=== PATIENT | female | born 1990 | race Hispanic/Latino ===

== ENCOUNTER 2019-05-01 21:29 | Emergency (ER) | payer OTHER ==
[2019-05-01 23:02] LABS: Hematocrit 39.3 % (30.3-42.9); Hemoglobin 13.4 gm/dl (10.1-14.3); Mean Corpuscular HGB Conc 34 % (30-34); Mean Corpuscular Hemoglobin 32 pg (28-32); Mean Corpuscular Volume 93 fl (79-97); Platelet Count 256 K/mm3 (140-440); Red Blood Count 4.24 M/mm3 (3.65-5.03); Red Cell Distribution Width 13.1 % (13.2-15.2)
[2019-05-01 23:15] LABS: BUN/Creatinine Ratio 18; Blood Urea Nitrogen 9 mg/dL (7-17); Calcium 9.7 mg/dL (8.4-10.2); Hemolysis Index 5
--- NOTE | 2019-05-02 00:34 | Emergency Department Report ---
ED General Adult HPI - General Chief complaint: Vaginal Bleeding Stated complaint: 12WEEKS PREG/BLEEDING Time Seen by Provider: 05/02/19 00:33 Source: patient Mode of arrival: Ambulatory Limitations: No Limitations - History of Present Illness Initial comments: 28-year-old female who is 12 weeks presents complaining of vaginal bleeding. Patient states the bleeding began this morning has become heavier. Patient complains of bleeding s/p intercourse this morning. Patient denies any syncope. Patient denies any chest pain or shortness of breath. Patient states she has no prior history of ectopic pregnancies or miscarriages. Patient states with the bleeding she called the on-call doctor and this was a here. Patient states she is not bleeding currently and has no cramping. - Related Data Previous Rx's Medication Instructions Recorded Last Taken Type Nitrofurantoin Mccracken/M-Cryst 100 mg PO Q12HR 7 Days #14 capsule 05/02/19 Unknown Rx [Macrobid CAP] Allergies Allergy/AdvReac Type Severity Reaction Status Date / Time No Known Allergies Allergy Unverified 05/01/19 21:50 ED Review of Systems ROS: Stated complaint: 12WEEKS PREG/BLEEDING Other details as noted in HPI Constitutional: denies: chills, fever Eyes: denies: eye pain, eye discharge, vision change ENT: denies: ear pain, throat pain Respiratory: denies: cough, shortness of breath, wheezing Cardiovascular: denies: chest pain, palpitations Endocrine: no symptoms reported Gastrointestinal: denies: abdominal pain, nausea, diarrhea Genitourinary: other (vaginal bleeding) Musculoskeletal: denies: back pain, joint swelling, arthralgia Skin: denies: rash, lesions Neurological: denies: headache, weakness, paresthesias Psychiatric: denies: anxiety, depression Hematological/Lymphatic: denies: easy bleeding, easy bruising ED Past Medical Hx - Past Medical History Previous Medical History?: No - Surgical History Past Surgical History?: No Additional Surgical History: perineal tear during childbirth. - Social History Smoking Status: Never Smoker Substance Use Type: None - Medications Home Medications: Home Medications Medication Instructions Recorded Confirmed Last Taken Type Nitrofurantoin Mccracken/M-Cryst 100 mg PO Q12HR 7 Days #14 capsule 05/02/19 Unknown Rx [Macrobid CAP] ED Physical Exam - General Limitations: No Limitations General appearance: alert, in no apparent distress - Head Head exam: Present: atraumatic, normocephalic - Eye Eye exam: Present: normal appearance - ENT ENT exam: Present: mucous membranes moist - Neck Neck exam: Present: normal inspection - Respiratory Respiratory exam: Present: normal lung sounds bilaterally. Absent: respiratory distress - Cardiovascular Cardiovascular Exam: Present: regular rate, normal rhythm. Absent: systolic murmur, diastolic murmur, rubs, gallop - GI/Abdominal GI/Abdominal exam: Present: soft, normal bowel sounds - Extremities Exam Extremities exam: Present: normal inspection - Back Exam Back exam: Present: normal inspection - Neurological Exam Neurological exam: Present: alert, oriented X3 - Psychiatric Psychiatric exam: Present: normal affect, normal mood - Skin Skin exam: Present: warm, dry, intact, normal color. Absent: rash ED Course Vital Signs 05/01/19 21:50 Temperature 98 F Pulse Rate 96 H Respiratory 16 Rate Blood Pressure 183/90 O2 Sat by Pulse 98 Oximetry ED Medical Decision Making - Lab Data Result diagrams: 05/01/19 22:32 05/01/19 22:32 - Medical Decision Making Patient currently comfortable. US shows no acute findings and shows stable 12 week . patietn to be discharged to follow up with OB. Patient to be treated for a uti with macrobid therapy as an outpatient. - Differential Diagnosis Ectopic ; Miscarriage; UTI Critical care attestation.: If time is entered above; I have spent that time in minutes in the direct care of this critically ill patient, excluding procedure time. ED Disposition Clinical Impression: Abdominal pain, , UTI (urinary tract infection) Disposition: TO HOME OR SELFCARE Is pt being admited?: No Condition: Stable Instructions: Urinary Tract Infection in Women (ED), Threatened Miscarriage ( ED) Prescriptions: Nitrofurantoin Mccracken/M-Cryst [Macrobid CAP] 100 mg PO Q12HR 7 Days #14 capsule Referrals: PRIMARY CARE,MD [Primary Care Provider] - 3-5 Days NATHAN AMOS CNM [Advanced Practice Nurse] - 3-5 Days Time of Disposition: 02:40 Print Language: BERMUDIAN
[2019-05-02 01:49] LABS: HCG Qualitative,Urine Positive (Negative)
[2019-05-02 01:51] LABS: Bacteria,Urine 2+ /HPF (Negative); Bilirubin,Urine NEG (Negative); Blood,Urine LG (Negative); Color,Urine Yellow (Yellow); Mucus,Urine 1+ /HPF; Protein,Urine <15 mg/dL mg/dL (Negative); Urobilinogen,Urine < 2.0 mg/dL (<2.0)
--- NOTE | 2019-05-02 01:51 | Ultrasound Report ---
ULTRASOUND OBSTETRIC INDICATION: Vaginal bleeding. with a clinical gestational age of 7 weeks, 5 days. TECHNIQUE: Transabdominal. COMPARISON: None available. FINDINGS: GESTATIONAL SAC: Well-defined oval shape and intrauterine in location. YOLK SAC: Not clearly seen. EMBRYO/FETUS: No significant abnormality. - [place]-Rump Length = 0.6 cm = 12 weeks, 3 day(s). - Heart Rate = 161 beats per minute. ADNEXA: Nonvisualization of the ovaries due to bowel gas. No distinct abnormality. FREE FLUID: None. ADDITIONAL FINDINGS: No additional significant findings. IMPRESSION: Single, living intrauterine with estimated sonographic age of 12 weeks, 3 day(s). Signer Name: Matthew Alas MD Signed: 05/02/2019 1:47 AM Workstation Name: [id number]
[2019-05-02 03:11] VITALS: BP 119/80
== END 2019-05-02 03:10 | disposition home or self-care (01) ==
LOC: ED 21:29
DX: O23.41 Unspecified infection of urinary tract in pregnancy, first trimester (principal); Z3A.12 12 weeks gestation of pregnancy
CPT/HCPCS: 36415; 76801; 80048; 81001; 81025; 84703; 85027; 87086; 99284

== ENCOUNTER 2019-10-18 16:26 | Inpatient (IN) | payer OTHER ==
[2019-10-18] MEDS ORDERED: MINERAL OIL 30 ML ORAL LIQD PO PRN (17:43)
[2019-10-18] MEDS ORDERED: TERBUTALINE 1 MG/1 ML INJ SUB-Q PRN (17:43)
[2019-10-18] MEDS ORDERED: LIDOCAINE (2%) 20 MG/1 ML VIAL 20 ML MDV INFILTRATI ONE (17:43)
[2019-10-18] MEDS ORDERED: TERBUTALINE 1 MG/1 ML INJ IVP PRN (17:43)
[2019-10-18] MEDS ORDERED: ONDANSETRON 4 MG/2 ML INJ IV PRN (17:43)
[2019-10-18] MEDS ORDERED: fentaNYL 100 MCG/2 ML INJ IV PRN (17:43)
[2019-10-18] MEDS ORDERED: ePHEDrine SULFATE 50 MG/1 ML INJ IV PRN (17:43)
--- NOTE | 2019-10-18 17:51 | History and Physical Report ---
History of Present Illness Date of examination: 10/18/19 (ruptured membranes. augmentation of labor) History of present illness: EDC Confirmation: 11/08/2019 Gestational Age: 5 2/7 weeks Past History : 2 Term Births: 1 Premature Births: 0 Living Children: 1 Para: 1 Mult. Births: 0 Prev : 0 Prev. attempt? 0 Aborta: 0 Elect. Ab: 0 Spont. Ab: 0 Ectopics: 0 # 1 Delivery date: 12/23/2012 Weeks Gestation: 37.5 Delivery type: Vaginal Anesthesia type: epidural Delivery location: [facility] Infant Sex: female weight: 7.25 Comments: none Social History: Patient is no e/t/d Smoking History: Patient has never smoked. 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 Infection History Hx of STD: none HIV Risk Eval: low risk Hepatitis B Risk Eval: low risk Personal hx. of genital herpes: no Partner hx. of genital herpes: no Rash, Viral, or Febrile illness since last LMP? no Varicella/Chicken Pox Status: Previous Disease TB Risk: no Genetic History Congenital Heart Defect: Mom: no Dad: no Berto Disease: Mom: no Dad: no Thalassemia Mom: no Dad: no Neural Tube Defect Mom: no Dad: no Down's Syndrome Mom: no Dad: no Dean-Sachs Mom: no Dad: no Sickle Cell Disease/Trait Mom: no Dad: no Hemophilia Mom: no Dad: no Muscular Dystrophy Mom: no Dad: no Cystic Fibrosis Mom: no Dad: no Jose Chorea Mom: no Dad: no Mental Retardation Mom: no Dad: no Fragile X Mom: no Dad: no Other Genetic/Chromosomal Disorder Mom: no Dad: no Child w/other defect Mom: no Dad: no Enviromental Exposures Xray Exposure: no Medication, drug, or alcohol use since LMP: no Chemical/Other Exposure: no Exposure to Cat Liter: no Hx of Parvovirus (Fifth Disease): no Occupational Exposure to Children: none Active Medications (reviewed today): RX 1 TABS ( VIT-FE FUMARATE-FA TABS) one po q day Current Allergies (reviewed today): No known allergies Past History - Obstetrical History Expected Date of Delivery: 11/08/19 Actual Gestation: 37 Week(s) 1 Day(s) : 2 Para: 1 Hx # Term Pregnancies: 1 Number of Pregnancies: 0 Spontaneous Abortions: 0 Induced : 0 Number of Living Children: 1 Medications and Allergies Allergies Allergy/AdvReac Type Severity Reaction Status Date / Time No Known Allergies Allergy Verified 10/18/19 17:58 Home Medications Medication Instructions Recorded Confirmed Last Taken Type Vitamin 1 tab PO DAILY 10/18/19 10/18/19 10/17/19 History - Vital Signs Vital signs: Vital Signs Pulse Pulse Ox 83 99 10/18/19 16:55 10/18/19 16:55 Temp Pulse Resp BP Pulse Ox 98.4 F 89 18 129/87 96 10/18/19 16:59 10/18/19 17:40 10/18/19 16:59 10/18/19 16:59 10/18/19 17:40 - Physical Exam Breasts: Positive: deferred Cardiovascular: Regular rate, Normal S1, Normal S2 Lungs: Positive: Normal air movement Abdomen: Positive: normal appearance, soft, normal bowel sounds. Negative: distention, tenderness Genitourinary (Female): Positive: normal external genitalia, normal perenium Vulva: both: normal Vagina: Positive: normal moisture. Negative: discharge Cervix: Negative: lesion, discharge Uterus: Positive: normal size, normal contour Adnexa: both: normal Anus/Rectum: Positive: normal perianal skin, heme negative. Negative: rectal mass, hemorrhoids Extremities: Positive: normal Deep Tendon Reflex Grade: Normal +2 - Obstetrical FHR: category 1 Uterine Contraction Monitor Mode: External Cervical Dilatation: 1.5 (clear fluid) Cervical Effacement Percentage: 30 (exam by Charge Nurse) station: -3 Uterine Contraction Pattern: Irregular Uterine Tone Measurement Phase: Resting Uterine Contraction Intensity: Mild Results Result Diagrams: 10/18/19 19:13 All other labs normal. GBS Negative HBsAg Screen Negative RPR Non Reactive Rubella Antibodies, IgG 3.08 index Immune >0.99 ABO Grouping O *4 Rh Factor Positive *5 Please note: Prior records for this patient's ABO / Rh type are not available for additional verification. Antibody Screen Negative Negative *6 WBC 8.6 x10E3/uL 3.4-10.8 *7 RBC 4.45 x10E6/uL 3.77-5.28 *8 Hemoglobin 13.8 g/dL 11.1-15.9 *9 Hematocrit 41.8 % 34.0-46.6 *10 MCV 94 fL 79-97 *11 MCH 31.0 pg 26.6-33.0 *12 MCHC 33.0 g/dL 31.5-35.7 *13 RDW 13.2 % 12.3-15.4 *14 Platelets 318 x10E3/uL 150-450 *15 Neutrophils 78 % Not Estab. *16 Lymphs 15 % Not Estab. *17 Monocytes 6 % Not Estab. *18 Eos 1 % Not Estab. *19 Basos 0 % Not Estab. *20 ! Immature Cells <No Reported Value> *21 Neutrophils (Absolute) 6.6 x10E3/uL 1.4-7.0 *22 Lymphs (Absolute) 1.3 x10E3/uL 0.7-3.1 *23 Monocytes(Absolute) 0.5 x10E3/uL 0.1-0.9 *24 Eos (Absolute) 0.1 x10E3/uL 0.0-0.4 *25 Baso (Absolute) 0.0 x10E3/uL 0.0-0.2 *26 ! Immature Granulocytes 0 % Not Estab. *27 ! Immature Grans (Abs) 0.0 x10E3/uL 0.0-0.1 *28 ! NRBC <No Reported Value> *29 Hematology Comments: <No Reported Value> *30 Tests: (2) Panel 403687 ([id number]) HIV Screen 4th Generation wRfx Non Reactive Non Reactive *31 Tests: (3) HCV Ab w/Rflx to Verification (538411) ! HCV Ab <0.1 s/co ratio 0.0-0.9 *32 Tests: (4) Comment: (809383) ! Comment: SPRCS *33 Non reactive HCV antibody screen is consistent with no HCV infection, unless recent infection is suspected or other evidence exists to indicate HCV infection. Tests: (5) Urine Culture, Routine (368790) Urine Culture, Routine Final report *34 Tests: (6) Result ([id number]) ! Result 1 MUG *35 Mixed urogenital shani 10,000-25,000 colony forming units per mL Assessment and Plan 29yo @ 37 weeks with SROM Not in active labor. GBS negative Orders in EMR
[2019-10-18] MEDS ORDERED: OXYTOCIN 20 UNIT/1000ML DRIP 20 UNITS/1,000 ML BAG IV SCH (18:00)
[2019-10-18 19:43] LABS: Hematocrit 43.4 % (30.3-42.9); Hemoglobin 14.7 gm/dl (10.1-14.3); Mean Corpuscular HGB Conc 34 % (30-34); Mean Corpuscular Volume 93 fl (79-97); Platelet Count 315 K/mm3 (140-440); Red Blood Count 4.65 M/mm3 (3.65-5.03); Red Cell Distribution Width 13.2 % (13.2-15.2)
[2019-10-18] MEDS ORDERED: OXYTOCIN DRIP 30 UNITS/500 ML BAG IV SCH (20:00)
[2019-10-18] MEDS: LACTATED RINGERS 1,000 ML IV SCH (21:23)
[2019-10-19] MEDS ORDERED: SODIUM CHLORIDE P/F VIAL 10 ML 10 ML ONE (01:36)
[2019-10-19] MEDS ORDERED: DEXMEDETOMIDINE 200 MCG/2 ML VIAL IV ONE (01:36)
[2019-10-19] MEDS ORDERED: NALOXONE 2 MG/2 ML INJ IV PRN (01:57)
[2019-10-19] MEDS ORDERED: ePHEDrine SULFATE 50 MG/1 ML INJ IV PRN (01:57)
--- NOTE | 2019-10-19 01:59 | Anesthesia Consultation ---
Anesthesia Consult and Med Hx Date of service: 10/19/19 - Airway Anesthetic Teeth Evaluation: Good ROM Head & Neck: Adequate Mental/Hyoid Distance: Adequate Mallampati Class: Class II Intubation Access Assessment: Probably Good - Pulmonary Exam CTA: Yes - Cardiac Exam Cardiac Exam: RRR - Pre-Operative Health Status ASA Pre-Surgery Classification: ASA2 Proposed Anesthetic Plan: Epidural - Pulmonary Hx Asthma: No COPD: No Hx Pneumonia: No - Cardiovascular System Hx Hypertension: No - Central Nervous System Hx Seizures: No Hx Psychiatric Problems: No - Endocrine Hx Renal Disease: No Hx End Stage Renal Disease: No Hx Hypothyroidism: No Hx Hyperthyroidism: No - Hematic Hx Anemia: No Hx Sickle Cell Disease: No - Other Systems Hx Alcohol Use: No Hx Obesity: Yes
--- NOTE | 2019-10-19 02:50 | Progress Note ---
Assessment and Plan Pt comfortable with epidural SVE 3-4,70,-2 Internals placed Continue pit per protocol Re-eval as needed. Subjective - Subjective Date of service: 10/19/19 (comfortable with epidural) Principal diagnosis: IUP@37weeks with SROM Interval history: EDC Confirmation: 11/08/2019 Gestational Age: 5 2/7 weeks Past History : 2 Term Births: 1 Premature Births: 0 Living Children: 1 Para: 1 Mult. Births: 0 Prev : 0 Prev. attempt? 0 Aborta: 0 Elect. Ab: 0 Spont. Ab: 0 Ectopics: 0 # 1 Delivery date: 12/23/2012 Weeks Gestation: 37.5 Delivery type: Vaginal Anesthesia type: epidural Delivery location: [facility] Sex: female weight: 7.25 Comments: none Social History: Patient is no e/t/d Smoking History: Patient has never smoked. 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 Infection History Hx of STD: none HIV Risk Eval: low risk Hepatitis B Risk Eval: low risk Personal hx. of genital herpes: no Partner hx. of genital herpes: no Rash, Viral, or Febrile illness since last LMP? no Varicella/Chicken Pox Status: Previous Disease TB Risk: no Genetic History Congenital Heart Defect: Mom: no Dad: no Berto Disease: Mom: no Dad: no Thalassemia Mom: no Dad: no Neural Tube Defect Mom: no Dad: no Down's Syndrome Mom: no Dad: no Dean-Sachs Mom: no Dad: no Sickle Cell Disease/Trait Mom: no Dad: no Hemophilia Mom: no Dad: no Muscular Dystrophy Mom: no Dad: no Cystic Fibrosis Mom: no Dad: no Jose Chorea Mom: no Dad: no Mental Retardation Mom: no Dad: no Fragile X Mom: no Dad: no Other Genetic/Chromosomal Disorder Mom: no Dad: no Child w/other defect Mom: no Dad: no Enviromental Exposures Xray Exposure: no Medication, drug, or alcohol use since LMP: no Chemical/Other Exposure: no Exposure to Cat Liter: no Hx of Parvovirus (Fifth Disease): no Occupational Exposure to Children: none Active Medications (reviewed today): RX 1 TABS ( VIT-FE FUMARATE-FA TABS) one po q day Current Allergies (reviewed today): No known allergies Patient reports: movement normal Objective - Vital Signs Vital Signs: Vital Signs - 12hr 10/18/19 10/18/19 10/18/19 16:55 16:59 17:00 Temperature 98.4 F Pulse Rate 83 85 91 H Respiratory 18 Rate Blood Pressure 129/87 Blood Pressure 129/87 [Left] Blood Pressure [Right] O2 Sat by Pulse 99 96 98 Oximetry 10/18/19 10/18/19 10/18/19 17:05 17:10 17:15 Temperature Pulse Rate 82 92 H 83 Respiratory Rate Blood Pressure Blood Pressure [Left] Blood Pressure [Right] O2 Sat by Pulse 98 97 97 Oximetry 10/18/19 10/18/19 10/18/19 17:20 17:25 17:28 Temperature Pulse Rate 85 106 H 88 Respiratory Rate Blood Pressure Blood Pressure [Left] Blood Pressure [Right] O2 Sat by Pulse 97 95 94 Oximetry 10/18/19 10/18/19 10/18/19 17:30 17:35 17:40 Temperature Pulse Rate 82 92 H 89 Respiratory Rate Blood Pressure Blood Pressure [Left] Blood Pressure [Right] O2 Sat by Pulse 94 96 96 Oximetry 10/18/19 10/19/19 10/19/19 19:44 01:38 01:41 Temperature 98.3 F Pulse Rate 96 H 94 H 92 H Respiratory 18 Rate Blood Pressure 133/82 137/88 Blood Pressure [Left] Blood Pressure 133/82 [Right] O2 Sat by Pulse 99 Oximetry 10/19/19 10/19/19 10/19/19 01:43 01:45 01:47 Temperature Pulse Rate 90 87 107 H Respiratory Rate Blood Pressure 139/90 139/79 137/73 Blood Pressure [Left] Blood Pressure [Right] O2 Sat by Pulse 100 89 Oximetry 10/19/19 10/19/19 10/19/19 01:48 01:49 01:51 Temperature Pulse Rate 86 99 H 94 H Respiratory Rate Blood Pressure 136/74 135/76 Blood Pressure [Left] Blood Pressure [Right] O2 Sat by Pulse 100 Oximetry 10/19/19 10/19/19 10/19/19 01:53 01:55 01:57 Temperature Pulse Rate 97 H 77 96 H Respiratory Rate Blood Pressure 144/79 134/75 139/69 Blood Pressure [Left] Blood Pressure [Right] O2 Sat by Pulse 100 Oximetry 10/19/19 10/19/19 10/19/19 01:58 01:59 02:01 Temperature Pulse Rate 114 H 90 99 H Respiratory Rate Blood Pressure 121/61 117/61 Blood Pressure [Left] Blood Pressure [Right] O2 Sat by Pulse 98 Oximetry 10/19/19 10/19/19 10/19/19 02:03 02:05 02:07 Temperature Pulse Rate 90 90 85 Respiratory Rate Blood Pressure 111/59 106/55 107/55 Blood Pressure [Left] Blood Pressure [Right] O2 Sat by Pulse 98 Oximetry 10/19/19 10/19/19 10/19/19 02:08 02:09 02:11 Temperature Pulse Rate 86 121 H 91 H Respiratory Rate Blood Pressure 104/62 90/51 Blood Pressure [Left] Blood Pressure [Right] O2 Sat by Pulse 97 Oximetry 10/19/19 10/19/19 10/19/19 02:13 02:15 02:17 Temperature Pulse Rate 98 H 86 96 H Respiratory Rate Blood Pressure 89/47 91/49 93/52 Blood Pressure [Left] Blood Pressure [Right] O2 Sat by Pulse 96 Oximetry 10/19/19 10/19/19 10/19/19 02:18 02:19 02:21 Temperature Pulse Rate 88 83 101 H Respiratory Rate Blood Pressure 98/55 97/51 Blood Pressure [Left] Blood Pressure [Right] O2 Sat by Pulse 98 Oximetry 10/19/19 10/19/19 10/19/19 02:23 02:25 02:27 Temperature Pulse Rate 91 H 97 H 113 H Respiratory Rate Blood Pressure 114/61 107/57 117/67 Blood Pressure [Left] Blood Pressure [Right] O2 Sat by Pulse 97 Oximetry 10/19/19 10/19/19 10/19/19 02:28 02:29 02:31 Temperature Pulse Rate 87 93 H 112 H Respiratory Rate Blood Pressure 114/63 114/62 Blood Pressure [Left] Blood Pressure [Right] O2 Sat by Pulse 98 Oximetry 10/19/19 10/19/19 10/19/19 02:33 02:35 02:37 Temperature Pulse Rate 82 109 H 89 Respiratory Rate Blood Pressure 102/64 97/56 102/53 Blood Pressure [Left] Blood Pressure [Right] O2 Sat by Pulse 99 Oximetry 10/19/19 10/19/19 02:39 02:41 Temperature Pulse Rate 82 85 Respiratory Rate Blood Pressure 93/52 94/52 Blood Pressure [Left] Blood Pressure [Right] O2 Sat by Pulse Oximetry - Exam Breasts: normal Cardiovascular: Regular rate Lungs: Normal air movement Abdomen: Present: normal appearance, soft. Absent: distention, tenderness Uterus: Present: normal FHR: auscultation normal, category 1 Uterine Contraction Monitor Mode: Internal Cervical Dilatation: 3.5 (ISE/IUPC placed) Cervical Effacement Percentage: 70 station: -2 Uterine Contraction Pattern: Regular Uterine Tone Measurement Phase: Resting Uterine Contraction Intensity: Moderate Extremities: normal Deep Tendon Reflex Grade: Normal +2 - Labs Labs: Abnormal Labs 10/18/19 19:13 WBC 14.2 H Hgb 14.7 H Hct 43.4 H Laboratory Results - last 24 hr 10/18/19 10/18/19 10/19/19 19:13 19:13 00:54 WBC 14.2 H RBC 4.65 Hgb 14.7 H Hct 43.4 H MCV 93 MCH 32 MCHC 34 RDW 13.2 Plt Count 315 Syphilis IgG Antibody Non-reactive Blood Type O POSITIVE Antibody Screen Negative
[2019-10-19] MEDS ORDERED: HETASTARCH 6% 500 ML IV ONE ×2 (03:38→03:41)
[2019-10-19] MEDS: fentaNYL-BUPIV 2 MCG/ML-0.125% 200 MCG/100 ML BAG EPIDURAL SCH ×2 (04:08→11:27)
--- NOTE | 2019-10-19 04:33 | Progress Note ---
Assessment and Plan Variables continue with ctx. Variability good. Pit remains @ 4mu. SVE 5,70,-2 Will continue with close observation. Subjective - Subjective Date of service: 10/19/19 (Cat 2 strip; BP 90/50 hespan given by anesthesia) Principal diagnosis: IUP@37weeks with SROM Interval history: EDC Confirmation: 11/08/2019 Gestational Age: 5 2/7 weeks Past History : 2 Term Births: 1 Premature Births: 0 Living Children: 1 Para: 1 Mult. Births: 0 Prev : 0 Prev. attempt? 0 Aborta: 0 Elect. Ab: 0 Spont. Ab: 0 Ectopics: 0 # 1 Delivery date: 12/23/2012 Weeks Gestation: 37.5 Delivery type: Vaginal Anesthesia type: epidural Delivery location: [facility] Sex: female weight: 7.25 Comments: none Social History: Patient is no e/t/d Smoking History: Patient has never smoked. 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 Infection History Hx of STD: none HIV Risk Eval: low risk Hepatitis B Risk Eval: low risk Personal hx. of genital herpes: no Partner hx. of genital herpes: no Rash, Viral, or Febrile illness since last LMP? no Varicella/Chicken Pox Status: Previous Disease TB Risk: no Genetic History Congenital Heart Defect: Mom: no Dad: no Berto Disease: Mom: no Dad: no Thalassemia Mom: no Dad: no Neural Tube Defect Mom: no Dad: no Down's Syndrome Mom: no Dad: no Dean-Sachs Mom: no Dad: no Sickle Cell Disease/Trait Mom: no Dad: no Hemophilia Mom: no Dad: no Muscular Dystrophy Mom: no Dad: no Cystic Fibrosis Mom: no Dad: no [place] Chorea Mom: no Dad: no Mental Retardation Mom: no Dad: no Fragile X Mom: no Dad: no Other Genetic/Chromosomal Disorder Mom: no Dad: no Child w/other defect Mom: no Dad: no Enviromental Exposures Xray Exposure: no Medication, drug, or alcohol use since LMP: no Chemical/Other Exposure: no Exposure to Cat Liter: no Hx of Parvovirus (Fifth Disease): no Occupational Exposure to Children: none Active Medications (reviewed today): RX 1 TABS ( VIT-FE FUMARATE-FA TABS) one po q day Current Allergies (reviewed today): No known allergies Patient reports: movement normal Objective - Vital Signs Vital Signs: Vital Signs - 12hr 10/18/19 10/18/19 10/18/19 16:55 16:59 17:00 Temperature 98.4 F Pulse Rate 83 85 91 H Respiratory 18 Rate Blood Pressure 129/87 Blood Pressure 129/87 [Left] Blood Pressure [Right] O2 Sat by Pulse 99 96 98 Oximetry 10/18/19 10/18/19 10/18/19 17:05 17:10 17:15 Temperature Pulse Rate 82 92 H 83 Respiratory Rate Blood Pressure Blood Pressure [Left] Blood Pressure [Right] O2 Sat by Pulse 98 97 97 Oximetry 10/18/19 10/18/19 10/18/19 17:20 17:25 17:28 Temperature Pulse Rate 85 106 H 88 Respiratory Rate Blood Pressure Blood Pressure [Left] Blood Pressure [Right] O2 Sat by Pulse 97 95 94 Oximetry 10/18/19 10/18/19 10/18/19 17:30 17:35 17:40 Temperature Pulse Rate 82 92 H 89 Respiratory Rate Blood Pressure Blood Pressure [Left] Blood Pressure [Right] O2 Sat by Pulse 94 96 96 Oximetry 10/18/19 10/19/19 10/19/19 19:44 01:38 01:41 Temperature 98.3 F Pulse Rate 96 H 94 H 92 H Respiratory 18 Rate Blood Pressure 133/82 137/88 Blood Pressure [Left] Blood Pressure 133/82 [Right] O2 Sat by Pulse 99 Oximetry 10/19/19 10/19/19 10/19/19 01:43 01:45 01:47 Temperature Pulse Rate 90 87 107 H Respiratory Rate Blood Pressure 139/90 139/79 137/73 Blood Pressure [Left] Blood Pressure [Right] O2 Sat by Pulse 100 89 Oximetry 10/19/19 10/19/19 10/19/19 01:48 01:49 01:51 Temperature Pulse Rate 86 99 H 94 H Respiratory Rate Blood Pressure 136/74 135/76 Blood Pressure [Left] Blood Pressure [Right] O2 Sat by Pulse 100 Oximetry 10/19/19 10/19/19 10/19/19 01:53 01:55 01:57 Temperature Pulse Rate 97 H 77 96 H Respiratory Rate Blood Pressure 144/79 134/75 139/69 Blood Pressure [Left] Blood Pressure [Right] O2 Sat by Pulse 100 Oximetry 10/19/19 10/19/19 10/19/19 01:58 01:59 02:01 Temperature Pulse Rate 114 H 90 99 H Respiratory Rate Blood Pressure 121/61 117/61 Blood Pressure [Left] Blood Pressure [Right] O2 Sat by Pulse 98 Oximetry 10/19/19 10/19/19 10/19/19 02:03 02:05 02:07 Temperature Pulse Rate 90 90 85 Respiratory Rate Blood Pressure 111/59 106/55 107/55 Blood Pressure [Left] Blood Pressure [Right] O2 Sat by Pulse 98 Oximetry 10/19/19 10/19/19 10/19/19 02:08 02:09 02:11 Temperature Pulse Rate 86 121 H 91 H Respiratory Rate Blood Pressure 104/62 90/51 Blood Pressure [Left] Blood Pressure [Right] O2 Sat by Pulse 97 Oximetry 10/19/19 10/19/19 10/19/19 02:13 02:15 02:17 Temperature Pulse Rate 98 H 86 96 H Respiratory Rate Blood Pressure 89/47 91/49 93/52 Blood Pressure [Left] Blood Pressure [Right] O2 Sat by Pulse 96 Oximetry 10/19/19 10/19/19 10/19/19 02:18 02:19 02:21 Temperature Pulse Rate 88 83 101 H Respiratory Rate Blood Pressure 98/55 97/51 Blood Pressure [Left] Blood Pressure [Right] O2 Sat by Pulse 98 Oximetry 10/19/19 10/19/19 10/19/19 02:23 02:25 02:27 Temperature Pulse Rate 91 H 97 H 113 H Respiratory Rate Blood Pressure 114/61 107/57 117/67 Blood Pressure [Left] Blood Pressure [Right] O2 Sat by Pulse 97 Oximetry 10/19/19 10/19/19 10/19/19 02:28 02:29 02:31 Temperature Pulse Rate 87 93 H 112 H Respiratory Rate Blood Pressure 114/63 114/62 Blood Pressure [Left] Blood Pressure [Right] O2 Sat by Pulse 98 Oximetry 10/19/19 10/19/19 10/19/19 02:33 02:35 02:37 Temperature Pulse Rate 82 109 H 89 Respiratory Rate Blood Pressure 102/64 97/56 102/53 Blood Pressure [Left] Blood Pressure [Right] O2 Sat by Pulse 99 Oximetry 10/19/19 10/19/19 10/19/19 02:39 02:41 02:43 Temperature Pulse Rate 82 85 104 H Respiratory Rate Blood Pressure 93/52 94/52 93/54 Blood Pressure [Left] Blood Pressure [Right] O2 Sat by Pulse Oximetry 10/19/19 10/19/19 10/19/19 02:45 02:47 02:49 Temperature Pulse Rate 100 H 83 82 Respiratory Rate Blood Pressure 88/50 110/57 109/57 Blood Pressure [Left] Blood Pressure [Right] O2 Sat by Pulse Oximetry 10/19/19 10/19/19 10/19/19 02:51 02:53 02:55 Temperature Pulse Rate 89 93 H 88 Respiratory Rate Blood Pressure 121/57 114/56 106/52 Blood Pressure [Left] Blood Pressure [Right] O2 Sat by Pulse Oximetry 10/19/19 10/19/19 10/19/19 02:57 02:59 03:32 Temperature Pulse Rate 77 76 73 Respiratory Rate Blood Pressure 105/53 107/51 92/44 Blood Pressure [Left] Blood Pressure [Right] O2 Sat by Pulse Oximetry 10/19/19 10/19/19 10/19/19 03:47 03:57 04:07 Temperature Pulse Rate 83 73 73 Respiratory Rate Blood Pressure 107/53 98/54 93/51 Blood Pressure [Left] Blood Pressure [Right] O2 Sat by Pulse Oximetry 10/19/19 04:17 Temperature Pulse Rate 71 Respiratory Rate Blood Pressure 103/51 Blood Pressure [Left] Blood Pressure [Right] O2 Sat by Pulse Oximetry - Exam Breasts: deferred Cardiovascular: Regular rate Lungs: Normal air movement Abdomen: Present: normal appearance, soft. Absent: distention, tenderness Uterus: Present: normal FHR: auscultation normal, category 2 Uterine Contraction Monitor Mode: Internal Cervical Dilatation: 5 Cervical Effacement Percentage: 70 station: -2 Uterine Contraction Pattern: Regular Uterine Tone Measurement Phase: Resting Uterine Contraction Intensity: Moderate Extremities: normal Deep Tendon Reflex Grade: Normal +2 - Labs Labs: Abnormal Labs 10/18/19 19:13 WBC 14.2 H Hgb 14.7 H Hct 43.4 H Laboratory Results - last 24 hr 10/18/19 10/18/19 10/19/19 19:13 19:13 00:54 WBC 14.2 H RBC 4.65 Hgb 14.7 H Hct 43.4 H MCV 93 MCH 32 MCHC 34 RDW 13.2 Plt Count 315 Syphilis IgG Antibody Non-reactive Blood Type O POSITIVE Antibody Screen Negative
[2019-10-19] MEDS: LACTATED RINGERS 1,000 ML IV SCH (05:02)
[2019-10-19] MEDS ORDERED: SODIUM CHLORIDE 0.9% 1000 ML 1,000 ML VG SCH (05:45)
--- NOTE | 2019-10-19 07:41 | Event Note ---
Date: 10/19/19 (head compression noted on recording) Pit @ 4mu SVE no chg 5,70,-2 Discussed with pt and family the possibility of operative intervention. Membranes ruptured >12hours and lack of cervical chg. Good return of fluid from amnioinfusion All questions addressed.
--- NOTE | 2019-10-19 08:37 | Progress Note ---
Assessment and Plan Slow progress SVE 6-7,80,-1 pitocin off. Will re-eval 1 hour Subjective - Subjective Date of service: 10/19/19 (decels cont with occas ctx; pit off) Principal diagnosis: IUP@37weeks with SROM Interval history: EDC Confirmation: 11/08/2019 Gestational Age: 5 2/7 weeks Past History : 2 Term Births: 1 Premature Births: 0 Living Children: 1 Para: 1 Mult. Births: 0 Prev : 0 Prev. attempt? 0 Aborta: 0 Elect. Ab: 0 Spont. Ab: 0 Ectopics: 0 # 1 Delivery date: 12/23/2012 Weeks Gestation: 37.5 Delivery type: Vaginal Anesthesia type: epidural Delivery location: [facility] Sex: female weight: 7.25 Comments: none Social History: Patient is no e/t/d Smoking History: Patient has never smoked. 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 Infection History Hx of STD: none HIV Risk Eval: low risk Hepatitis B Risk Eval: low risk Personal hx. of genital herpes: no Partner hx. of genital herpes: no Rash, Viral, or Febrile illness since last LMP? no Varicella/Chicken Pox Status: Previous Disease TB Risk: no Genetic History Congenital Heart Defect: Mom: no Dad: no Berto Disease: Mom: no Dad: no Thalassemia Mom: no Dad: no Neural Tube Defect Mom: no Dad: no Down's Syndrome Mom: no Dad: no Dean-Sachs Mom: no Dad: no Sickle Cell Disease/Trait Mom: no Dad: no Hemophilia Mom: no Dad: no Muscular Dystrophy Mom: no Dad: no Cystic Fibrosis Mom: no Dad: no [place] Chorea Mom: no Dad: no Mental Retardation Mom: no Dad: no Fragile X Mom: no Dad: no Other Genetic/Chromosomal Disorder Mom: no Dad: no Child w/other defect Mom: no Dad: no Enviromental Exposures Xray Exposure: no Medication, drug, or alcohol use since LMP: no Chemical/Other Exposure: no Exposure to Cat Liter: no Hx of Parvovirus (Fifth Disease): no Occupational Exposure to Children: none Active Medications (reviewed today): RX 1 TABS ( VIT-FE FUMARATE-FA TABS) one po q day Current Allergies (reviewed today): No known allergies Patient reports: movement normal Objective - Vital Signs Vital Signs: Vital Signs - 12hr 10/19/19 10/19/19 10/19/19 01:38 01:41 01:43 Temperature Pulse Rate 94 H 92 H 90 Blood Pressure 137/88 139/90 O2 Sat by Pulse 99 100 Oximetry 10/19/19 10/19/19 10/19/19 01:45 01:47 01:48 Temperature Pulse Rate 87 107 H 86 Blood Pressure 139/79 137/73 O2 Sat by Pulse 89 100 Oximetry 10/19/19 10/19/19 10/19/19 01:49 01:51 01:53 Temperature Pulse Rate 99 H 94 H 97 H Blood Pressure 136/74 135/76 144/79 O2 Sat by Pulse 100 Oximetry 10/19/19 10/19/19 10/19/19 01:55 01:57 01:58 Temperature Pulse Rate 77 96 H 114 H Blood Pressure 134/75 139/69 O2 Sat by Pulse 98 Oximetry 10/19/19 10/19/19 10/19/19 01:59 02:01 02:03 Temperature Pulse Rate 90 99 H 90 Blood Pressure 121/61 117/61 111/59 O2 Sat by Pulse 98 Oximetry 10/19/19 10/19/19 10/19/19 02:05 02:07 02:08 Temperature Pulse Rate 90 85 86 Blood Pressure 106/55 107/55 O2 Sat by Pulse 97 Oximetry 10/19/19 10/19/19 10/19/19 02:09 02:11 02:13 Temperature Pulse Rate 121 H 91 H 98 H Blood Pressure 104/62 90/51 89/47 O2 Sat by Pulse 96 Oximetry 10/19/19 10/19/19 10/19/19 02:15 02:17 02:18 Temperature Pulse Rate 86 96 H 88 Blood Pressure 91/49 93/52 O2 Sat by Pulse 98 Oximetry 10/19/19 10/19/19 10/19/19 02:19 02:21 02:23 Temperature Pulse Rate 83 101 H 91 H Blood Pressure 98/55 97/51 114/61 O2 Sat by Pulse 97 Oximetry 10/19/19 10/19/19 10/19/19 02:25 02:27 02:28 Temperature Pulse Rate 97 H 113 H 87 Blood Pressure 107/57 117/67 O2 Sat by Pulse 98 Oximetry 10/19/19 10/19/19 10/19/19 02:29 02:31 02:33 Temperature Pulse Rate 93 H 112 H 82 Blood Pressure 114/63 114/62 102/64 O2 Sat by Pulse 99 Oximetry 10/19/19 10/19/19 10/19/19 02:35 02:37 02:39 Temperature Pulse Rate 109 H 89 82 Blood Pressure 97/56 102/53 93/52 O2 Sat by Pulse Oximetry 10/19/19 10/19/19 10/19/19 02:41 02:43 02:45 Temperature Pulse Rate 85 104 H 100 H Blood Pressure 94/52 93/54 88/50 O2 Sat by Pulse Oximetry 10/19/19 10/19/19 10/19/19 02:47 02:49 02:51 Temperature Pulse Rate 83 82 89 Blood Pressure 110/57 109/57 121/57 O2 Sat by Pulse Oximetry 10/19/19 10/19/19 10/19/19 02:53 02:55 02:57 Temperature Pulse Rate 93 H 88 77 Blood Pressure 114/56 106/52 105/53 O2 Sat by Pulse Oximetry 10/19/19 10/19/19 10/19/19 02:59 03:32 03:47 Temperature Pulse Rate 76 73 83 Blood Pressure 107/51 92/44 107/53 O2 Sat by Pulse Oximetry 10/19/19 10/19/19 10/19/19 03:57 04:07 04:17 Temperature Pulse Rate 73 73 71 Blood Pressure 98/54 93/51 103/51 O2 Sat by Pulse Oximetry 10/19/19 10/19/19 10/19/19 04:36 04:48 04:56 Temperature Pulse Rate 80 74 69 Blood Pressure 119/65 111/59 102/51 O2 Sat by Pulse Oximetry 10/19/19 10/19/19 10/19/19 05:07 05:27 05:36 Temperature Pulse Rate 77 73 77 Blood Pressure 96/46 119/58 118/57 O2 Sat by Pulse Oximetry 10/19/19 10/19/19 10/19/19 05:47 05:57 06:02 Temperature Pulse Rate 95 H 74 85 Blood Pressure 123/70 104/58 O2 Sat by Pulse 99 100 Oximetry 10/19/19 10/19/19 10/19/19 06:07 06:12 06:16 Temperature Pulse Rate 80 75 77 Blood Pressure 121/66 110/58 O2 Sat by Pulse 100 100 Oximetry 10/19/19 10/19/19 10/19/19 06:17 06:22 06:27 Temperature Pulse Rate 71 75 85 Blood Pressure 105/58 O2 Sat by Pulse 99 99 99 Oximetry 10/19/19 10/19/19 10/19/19 06:32 06:36 06:37 Temperature Pulse Rate 82 77 87 Blood Pressure 105/55 O2 Sat by Pulse 100 100 Oximetry 10/19/19 10/19/19 10/19/19 06:42 06:47 06:52 Temperature Pulse Rate 70 79 71 Blood Pressure 102/57 O2 Sat by Pulse 99 99 99 Oximetry 10/19/19 10/19/19 10/19/19 06:57 07:02 07:06 Temperature Pulse Rate 72 81 78 Blood Pressure 106/55 112/72 O2 Sat by Pulse 99 100 Oximetry 10/19/19 10/19/19 10/19/19 07:07 07:12 07:16 Temperature Pulse Rate 75 65 105 H Blood Pressure 105/66 O2 Sat by Pulse 99 99 Oximetry 10/19/19 10/19/19 10/19/19 07:18 07:23 07:26 Temperature Pulse Rate 75 74 82 Blood Pressure 115/69 O2 Sat by Pulse 100 99 Oximetry 10/19/19 10/19/19 10/19/19 07:28 07:33 07:37 Temperature Pulse Rate 82 88 88 Blood Pressure 121/75 O2 Sat by Pulse 100 98 Oximetry 10/19/19 10/19/19 10/19/19 07:38 07:43 07:47 Temperature 99.1 F Pulse Rate 91 H 84 86 Blood Pressure 117/59 O2 Sat by Pulse 97 97 Oximetry 10/19/19 10/19/19 10/19/19 07:48 07:53 07:58 Temperature Pulse Rate 83 96 H 69 Blood Pressure O2 Sat by Pulse 97 97 99 Oximetry 10/19/19 10/19/19 10/19/19 07:59 08:03 08:08 Temperature Pulse Rate 73 82 75 Blood Pressure 104/57 O2 Sat by Pulse 99 100 Oximetry 10/19/19 10/19/19 10/19/19 08:13 08:16 08:18 Temperature Pulse Rate 67 68 72 Blood Pressure 102/52 O2 Sat by Pulse 99 99 Oximetry 10/19/19 10/19/19 10/19/19 08:23 08:28 08:33 Temperature Pulse Rate 89 126 H 101 H Blood Pressure 126/82 O2 Sat by Pulse 96 98 97 Oximetry - Exam Breasts: deferred Cardiovascular: Regular rate Lungs: Normal air movement Abdomen: Present: normal appearance, soft. Absent: distention, tenderness Uterus: Present: normal FHR: auscultation normal, category 2 Uterine Contraction Monitor Mode: Internal Cervical Dilatation: 6.5 Cervical Effacement Percentage: 80 station: -1 Uterine Contraction Pattern: Regular Uterine Tone Measurement Phase: Resting Uterine Contraction Intensity: Moderate Extremities: normal Deep Tendon Reflex Grade: Normal +2 - Labs Labs: Abnormal Labs 10/18/19 19:13 WBC 14.2 H Hgb 14.7 H Hct 43.4 H Laboratory Results - last 24 hr 10/18/19 10/18/19 10/19/19 19:13 19:13 00:54 WBC 14.2 H RBC 4.65 Hgb 14.7 H Hct 43.4 H MCV 93 MCH 32 MCHC 34 RDW 13.2 Plt Count 315 Syphilis IgG Antibody Non-reactive Blood Type O POSITIVE Antibody Screen Negative
[2019-10-19] MEDS ORDERED: BICITRA ORAL LIQD 30ML PO ONE (11:47)
[2019-10-19] MEDS ORDERED: METOCLOPRAMIDE 10 MG/2 ML INJ IV ONE (11:47)
[2019-10-19] MEDS ORDERED: FAMOTIDINE 20 MG/2 ML INJ IV ONE (11:47)
[2019-10-19] MEDS ORDERED: WATER FOR IRRIG STERILE 1,500 ML BOTTLE IR ONE (12:00)
[2019-10-19] MEDS ORDERED: OXYTOCIN 10 UNIT/1 ML INJ ONE ×3 (12:08→12:30)
[2019-10-19] MEDS ORDERED: SODIUM CHLORIDE 0.9% IRR 1,500 ML BOTTLE IR ONE (12:20)
[2019-10-19] MEDS ORDERED: LIDOCAINE MPF (2%) 20 MG/1 ML VIAL 5 ML ONE (12:23)
[2019-10-19] MEDS ORDERED: ONDANSETRON 4 MG/2 ML INJ ONE (12:42)
[2019-10-19] MEDS ORDERED: HYDROmorphone 1 MG/1 ML INJ ONE (12:45)
--- NOTE | 2019-10-19 13:00 | Progress Note ---
Assessment and Plan Dr evans made aware of my concerns of lack of dilatation and nonreassuring strip. Attempted multiple position chges, O2, fluid bolus. Pt aware of need for section. Risks reviewed. Consents signed. Orders in EMR. Subjective - Subjective Date of service: 10/19/19 (delay charting 1145) Principal diagnosis: IUP@37weeks with SROM Interval history: EDC Confirmation: 11/08/2019 Gestational Age: 5 2/7 weeks Past History : 2 Term Births: 1 Premature Births: 0 Living Children: 1 Para: 1 Mult. Births: 0 Prev : 0 Prev. attempt? 0 Aborta: 0 Elect. Ab: 0 Spont. Ab: 0 Ectopics: 0 # 1 Delivery date: 12/23/2012 Weeks Gestation: 37.5 Delivery type: Vaginal Anesthesia type: epidural Delivery location: [facility] Infant Sex: female weight: 7.25 Comments: none Social History: Patient is no e/t/d Smoking History: Patient has never smoked. 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 Infection History Hx of STD: none HIV Risk Eval: low risk Hepatitis B Risk Eval: low risk Personal hx. of genital herpes: no Partner hx. of genital herpes: no Rash, Viral, or Febrile illness since last LMP? no Varicella/Chicken Pox Status: Previous Disease TB Risk: no Genetic History Congenital Heart Defect: Mom: no Dad: no Berto Disease: Mom: no Dad: no Thalassemia Mom: no Dad: no Neural Tube Defect Mom: no Dad: no Down's Syndrome Mom: no Dad: no Dean-Sachs Mom: no Dad: no Sickle Cell Disease/Trait Mom: no Dad: no Hemophilia Mom: no Dad: no Muscular Dystrophy Mom: no Dad: no Cystic Fibrosis Mom: no Dad: no Amite Chorea Mom: no Dad: no Mental Retardation Mom: no Dad: no Fragile X Mom: no Dad: no Other Genetic/Chromosomal Disorder Mom: no Dad: no Child w/other defect Mom: no Dad: no Enviromental Exposures Xray Exposure: no Medication, drug, or alcohol use since LMP: no Chemical/Other Exposure: no Exposure to Cat Liter: no Hx of Parvovirus (Fifth Disease): no Occupational Exposure to Children: none Active Medications (reviewed today): RX 1 TABS ( VIT-FE FUMARATE-FA TABS) one po q day Current Allergies (reviewed today): No known allergies Patient reports: movement normal, other (variables are now with each ctx; slow to recover) Objective - Vital Signs Vital Signs: Vital Signs - 12hr 10/19/19 10/19/19 10/19/19 01:38 01:41 01:43 Temperature Pulse Rate 94 H 92 H 90 Blood Pressure 137/88 139/90 O2 Sat by Pulse 99 100 Oximetry 10/19/19 10/19/19 10/19/19 01:45 01:47 01:48 Temperature Pulse Rate 87 107 H 86 Blood Pressure 139/79 137/73 O2 Sat by Pulse 89 100 Oximetry 10/19/19 10/19/19 10/19/19 01:49 01:51 01:53 Temperature Pulse Rate 99 H 94 H 97 H Blood Pressure 136/74 135/76 144/79 O2 Sat by Pulse 100 Oximetry 10/19/19 10/19/19 10/19/19 01:55 01:57 01:58 Temperature Pulse Rate 77 96 H 114 H Blood Pressure 134/75 139/69 O2 Sat by Pulse 98 Oximetry 10/19/19 10/19/19 10/19/19 01:59 02:01 02:03 Temperature Pulse Rate 90 99 H 90 Blood Pressure 121/61 117/61 111/59 O2 Sat by Pulse 98 Oximetry 10/19/19 10/19/19 10/19/19 02:05 02:07 02:08 Temperature Pulse Rate 90 85 86 Blood Pressure 106/55 107/55 O2 Sat by Pulse 97 Oximetry 10/19/19 10/19/19 10/19/19 02:09 02:11 02:13 Temperature Pulse Rate 121 H 91 H 98 H Blood Pressure 104/62 90/51 89/47 O2 Sat by Pulse 96 Oximetry 10/19/19 10/19/19 10/19/19 02:15 02:17 02:18 Temperature Pulse Rate 86 96 H 88 Blood Pressure 91/49 93/52 O2 Sat by Pulse 98 Oximetry 10/19/19 10/19/19 10/19/19 02:19 02:21 02:23 Temperature Pulse Rate 83 101 H 91 H Blood Pressure 98/55 97/51 114/61 O2 Sat by Pulse 97 Oximetry 10/19/19 10/19/19 10/19/19 02:25 02:27 02:28 Temperature Pulse Rate 97 H 113 H 87 Blood Pressure 107/57 117/67 O2 Sat by Pulse 98 Oximetry 10/19/19 10/19/19 10/19/19 02:29 02:31 02:33 Temperature Pulse Rate 93 H 112 H 82 Blood Pressure 114/63 114/62 102/64 O2 Sat by Pulse 99 Oximetry 10/19/19 10/19/19 10/19/19 02:35 02:37 02:39 Temperature Pulse Rate 109 H 89 82 Blood Pressure 97/56 102/53 93/52 O2 Sat by Pulse Oximetry 10/19/19 10/19/19 10/19/19 02:41 02:43 02:45 Temperature Pulse Rate 85 104 H 100 H Blood Pressure 94/52 93/54 88/50 O2 Sat by Pulse Oximetry 10/19/19 10/19/19 10/19/19 02:47 02:49 02:51 Temperature Pulse Rate 83 82 89 Blood Pressure 110/57 109/57 121/57 O2 Sat by Pulse Oximetry 10/19/19 10/19/19 10/19/19 02:53 02:55 02:57 Temperature Pulse Rate 93 H 88 77 Blood Pressure 114/56 106/52 105/53 O2 Sat by Pulse Oximetry 10/19/19 10/19/19 10/19/19 02:59 03:32 03:47 Temperature Pulse Rate 76 73 83 Blood Pressure 107/51 92/44 107/53 O2 Sat by Pulse Oximetry 10/19/19 10/19/19 10/19/19 03:57 04:07 04:17 Temperature Pulse Rate 73 73 71 Blood Pressure 98/54 93/51 103/51 O2 Sat by Pulse Oximetry 10/19/19 10/19/19 10/19/19 04:36 04:48 04:56 Temperature Pulse Rate 80 74 69 Blood Pressure 119/65 111/59 102/51 O2 Sat by Pulse Oximetry 10/19/19 10/19/19 10/19/19 05:07 05:27 05:36 Temperature Pulse Rate 77 73 77 Blood Pressure 96/46 119/58 118/57 O2 Sat by Pulse Oximetry 10/19/19 10/19/19 10/19/19 05:47 05:57 06:02 Temperature Pulse Rate 95 H 74 85 Blood Pressure 123/70 104/58 O2 Sat by Pulse 99 100 Oximetry 10/19/19 10/19/19 10/19/19 06:07 06:12 06:16 Temperature Pulse Rate 80 75 77 Blood Pressure 121/66 110/58 O2 Sat by Pulse 100 100 Oximetry 10/19/19 10/19/19 10/19/19 06:17 06:22 06:27 Temperature Pulse Rate 71 75 85 Blood Pressure 105/58 O2 Sat by Pulse 99 99 99 Oximetry 10/19/19 10/19/19 10/19/19 06:32 06:36 06:37 Temperature Pulse Rate 82 77 87 Blood Pressure 105/55 O2 Sat by Pulse 100 100 Oximetry 10/19/19 10/19/19 10/19/19 06:42 06:47 06:52 Temperature Pulse Rate 70 79 71 Blood Pressure 102/57 O2 Sat by Pulse 99 99 99 Oximetry 10/19/19 10/19/19 10/19/19 06:57 07:02 07:06 Temperature Pulse Rate 72 81 78 Blood Pressure 106/55 112/72 O2 Sat by Pulse 99 100 Oximetry 10/19/19 10/19/19 10/19/19 07:07 07:12 07:16 Temperature Pulse Rate 75 65 105 H Blood Pressure 105/66 O2 Sat by Pulse 99 99 Oximetry 10/19/19 10/19/19 10/19/19 07:18 07:23 07:26 Temperature Pulse Rate 75 74 82 Blood Pressure 115/69 O2 Sat by Pulse 100 99 Oximetry 10/19/19 10/19/19 10/19/19 07:28 07:33 07:37 Temperature Pulse Rate 82 88 88 Blood Pressure 121/75 O2 Sat by Pulse 100 98 Oximetry 10/19/19 10/19/19 10/19/19 07:38 07:43 07:47 Temperature 99.1 F Pulse Rate 91 H 84 86 Blood Pressure 117/59 O2 Sat by Pulse 97 97 Oximetry 10/19/19 10/19/19 10/19/19 07:48 07:53 07:58 Temperature Pulse Rate 83 96 H 69 Blood Pressure O2 Sat by Pulse 97 97 99 Oximetry 10/19/19 10/19/19 10/19/19 07:59 08:03 08:08 Temperature Pulse Rate 73 82 75 Blood Pressure 104/57 O2 Sat by Pulse 99 100 Oximetry 10/19/19 10/19/19 10/19/19 08:13 08:16 08:18 Temperature Pulse Rate 67 68 72 Blood Pressure 102/52 O2 Sat by Pulse 99 99 Oximetry 10/19/19 10/19/19 10/19/19 08:23 08:28 08:33 Temperature Pulse Rate 89 126 H 101 H Blood Pressure 126/82 O2 Sat by Pulse 96 98 97 Oximetry 10/19/19 10/19/19 10/19/19 08:38 08:43 08:47 Temperature Pulse Rate 99 H 84 82 Blood Pressure 127/62 O2 Sat by Pulse 99 97 Oximetry 10/19/19 10/19/19 10/19/19 08:48 08:53 08:58 Temperature Pulse Rate 86 82 79 Blood Pressure O2 Sat by Pulse 98 97 96 Oximetry 10/19/19 10/19/19 10/19/19 09:01 09:03 09:08 Temperature Pulse Rate 88 79 77 Blood Pressure 122/64 O2 Sat by Pulse 97 97 Oximetry 10/19/19 10/19/19 10/19/19 09:13 09:17 09:18 Temperature Pulse Rate 84 75 76 Blood Pressure 107/56 O2 Sat by Pulse 96 97 Oximetry 10/19/19 10/19/19 10/19/19 09:23 09:28 09:31 Temperature Pulse Rate 107 H 78 70 Blood Pressure 97/52 O2 Sat by Pulse 99 95 Oximetry 10/19/19 10/19/19 10/19/19 09:33 09:37 09:38 Temperature Pulse Rate 70 78 77 Blood Pressure O2 Sat by Pulse 95 94 95 Oximetry 10/19/19 10/19/19 10/19/19 09:43 09:46 09:47 Temperature Pulse Rate 75 74 69 Blood Pressure 96/52 O2 Sat by Pulse 95 94 Oximetry 10/19/19 10/19/19 10/19/19 09:48 09:51 09:53 Temperature Pulse Rate 69 69 71 Blood Pressure O2 Sat by Pulse 95 94 95 Oximetry 10/19/19 10/19/19 10/19/19 09:56 09:58 10:01 Temperature Pulse Rate 69 76 74 Blood Pressure 88/49 O2 Sat by Pulse 94 95 Oximetry 10/19/19 10/19/19 10/19/19 10:03 10:08 10:13 Temperature Pulse Rate 72 72 76 Blood Pressure O2 Sat by Pulse 95 95 94 Oximetry 10/19/19 10/19/19 10/19/19 10:16 10:18 10:23 Temperature Pulse Rate 83 74 67 Blood Pressure 96/54 O2 Sat by Pulse 95 96 Oximetry 10/19/19 10/19/19 10/19/19 10:28 10:32 10:33 Temperature Pulse Rate 78 74 79 Blood Pressure 96/52 O2 Sat by Pulse 95 94 95 Oximetry 10/19/19 10/19/19 10/19/19 10:38 10:43 10:46 Temperature Pulse Rate 74 77 82 Blood Pressure 101/56 O2 Sat by Pulse 96 96 Oximetry 10/19/19 10/19/19 10/19/19 10:48 10:53 10:58 Temperature Pulse Rate 92 H 91 H 88 Blood Pressure O2 Sat by Pulse 96 96 97 Oximetry 10/19/19 10/19/19 10/19/19 11:01 11:03 11:08 Temperature Pulse Rate 89 89 94 H Blood Pressure 103/57 O2 Sat by Pulse 96 97 Oximetry 10/19/19 10/19/19 10/19/19 11:13 11:17 11:18 Temperature Pulse Rate 94 H 83 92 H Blood Pressure 124/70 O2 Sat by Pulse 97 97 Oximetry 10/19/19 10/19/19 10/19/19 11:23 11:28 11:32 Temperature Pulse Rate 92 H 88 83 Blood Pressure 119/74 O2 Sat by Pulse 99 98 Oximetry 10/19/19 10/19/19 10/19/19 11:33 11:38 11:43 Temperature Pulse Rate 98 H 104 H 89 Blood Pressure O2 Sat by Pulse 99 99 100 Oximetry 10/19/19 10/19/19 10/19/19 11:47 11:48 12:00 Temperature Pulse Rate 85 93 H 100 H Blood Pressure 125/73 O2 Sat by Pulse 100 100 Oximetry 10/19/19 12:05 Temperature Pulse Rate 95 H Blood Pressure O2 Sat by Pulse 100 Oximetry - Exam Breasts: deferred Cardiovascular: Regular rate Lungs: Normal air movement Abdomen: Present: normal appearance, soft. Absent: distention, tenderness Uterus: Present: normal FHR: auscultation normal, category 2 Uterine Contraction Monitor Mode: Internal Cervical Dilatation: 6.5 (well formed caput) Cervical Effacement Percentage: 90 station: -2 Uterine Contraction Pattern: Regular Uterine Contraction Intensity: Moderate Extremities: normal Deep Tendon Reflex Grade: Normal +2 - Labs Labs: Abnormal Labs 10/18/19 19:13 WBC 14.2 H Hgb 14.7 H Hct 43.4 H Laboratory Results - last 24 hr 10/18/19 10/18/19 10/19/19 19:13 19:13 00:54 WBC 14.2 H RBC 4.65 Hgb 14.7 H Hct 43.4 H MCV 93 MCH 32 MCHC 34 RDW 13.2 Plt Count 315 Syphilis IgG Antibody Non-reactive Blood Type O POSITIVE Antibody Screen Negative
--- NOTE | 2019-10-19 13:30 | Operative Report ---
Operative Report Operative Report: Date of procedure: 10/19/2019 Pre-operative diagnosis: Intrauterine at 37 weeks with sure r upture membranes, nonreassuring heart tracing remote from vaginal delivery Post-operative diagnosis: Same Procedure name(s): Primary low transverse section Surgeon: Jacob Rey MD Celery Cutter: Gill Otoole, certified nurse asbestos cement sheet supervisor Anesthesia: Epidural EBL: 650 mL Complications: None Findings: Normal uterus tubes and ovaries bilaterally. Female weight 5 lbs. 13 oz. Apgars 8 at 1 minute and 9 at 5 minutes Specimen(s): Placenta Procedure: The patient was brought to the operating room in an expedient manner. Her epidural was dosed without any complications. She was then placed in left lateral tilt. Prepped and draped in the usual sterile manner. After testing for adequate anesthesia level, a Pfannenstiel incision was made. This incision was taken down to the fascia. The fascia was then nicked in the midline. This incision was extended out laterally with Aden scissors. The fascia was then sharply and bluntly from the underlying rectus muscles. The rectus muscles were bluntly and sharply . The peritoneum was then entered with the warehouse forklift operator's fingers. This incision was spread vertically with care not to damage the bladder below. Bladder blade was placed. The bladder flap was then formed sharply and bluntly with Metzenbaum scissors. A transverse incision was made in lower uterine segment. This incision was extended laterally with the operators fingers. The amniotic sac was then entered bluntly with the warehouse forklift operator's fingers. The infant was delivered from the vertex position. Bulb suction on the mother's abdomen. Cord was double clamped and cut. The was then passed to the nursery personnel who were in attendance. The above scores were given by the nursery personnel. The placenta was then bluntly removed. The uterus was then externalized and wiped clean the remaining products. The uterine incision was closed in layers. The first incision was closed in a locking manner using 0 Vicryl. This was followed by imbricating stitch also with 0 Vicryl. This closure was hemostatic. The bladder flap was copiously irrigated and found to be hemostatic. The pelvis was copiously irrigat ed and found to be hemostatic. The uterus was then placed back to the patient's abdomen. The retractors were removed. The rectus muscles were inspected and found to be hemostatic. The fascia was then closed in a running manner using 0 Vicryl. This incision was hemostatic irrigation Bovie. Instrument count was incorrect. Abdominal x-ray was done showing no evidence of foreign bodies present. The skin was reapproximated with 4-0 Vicryl subcuticularly. The patient tolerated procedure well. Her urine was clear. The was admitted to the well baby nursery. The patient was accompanied to recovery room in good condition.
--- NOTE | 2019-10-19 13:31 | XRay Report ---
ABDOMEN 1 VIEW(S) INDICATION / CLINICAL INFORMATION: possible foreign body. Instrument count after . COMPARISON: None available. FINDINGS: TUBES / LINES: None. BOWEL GAS PATTERN: No significant abnormality. FREE AIR / EXTRALUMINAL GAS: None seen. ADDITIONAL FINDINGS: No radiopaque foreign body is detected in the abdomen or pelvis. IMPRESSION: No significant abnormality. Signer Name: Mirza Reese Jr, MD Signed: 10/19/2019 1:27 PM Workstation Name: [id number]
[2019-10-19] MEDS: KETOROLAC 30 MG/1 ML INJ IV PRN ×2 (13:54→19:56)
[2019-10-19] MEDS ORDERED: WITCH HAZEL/ GLYCERIN PAD TP PRN (15:31)
[2019-10-19] MEDS ORDERED: NALOXONE 0.4 MG/1 ML INJ IV PRN (15:31)
[2019-10-19] MEDS ORDERED: SIMETHICONE 80 MG CHEW TAB PO PRN (15:31)
[2019-10-19] MEDS ORDERED: KETOROLAC 30 MG/1 ML INJ IV PRN (15:31)
[2019-10-19] MEDS ORDERED: D5W/LACTATED RINGERS 1,000 ML IV SCH (15:31)
[2019-10-19] MEDS ORDERED: MAGNESIUM HYDROXIDE (MOM) ORAL LIQD UDC PO PRN (15:31)
[2019-10-19] MEDS ORDERED: LANOLIN/ZINC/DIMETHICONE (LANSINOH) 7 GM TP PRN (15:31)
[2019-10-19] MEDS ORDERED: OXYTOCIN 20 UNIT/1000ML DRIP 20 UNITS/1,000 ML BAG IV SCH (15:31)
[2019-10-19] MEDS: MORPHINE 2 MG/1 ML INJ IV PRN (16:09)
[2019-10-19] MEDS: ceFAZolin/NS 1 GM/50 ML 1 GM/50 ML BAG IV SCH (17:00)
[2019-10-20] MEDS: ceFAZolin/NS 1 GM/50 ML 1 GM/50 ML BAG IV SCH (00:10)
[2019-10-20] MEDS: MORPHINE 2 MG/1 ML INJ IV PRN (00:28)
[2019-10-20 04:14] LABS: Hematocrit 31.9 % (30.3-42.9)
[2019-10-20] MEDS: HYDROcodone/ACETAMINOPHEN 5-325 MG TAB PO PRN ×3 (06:37→15:39)
--- NOTE | 2019-10-20 08:04 | Progress Note ---
Assessment and Plan pt resting with baby in arms, no complaints. H&H 11.0/31.9, VSSAF, incision dressed - d&I. rn to remove after shower today. Lochia scant, fundus firm. - Patient Problems (1) delivery delivered Current Visit: Yes Status: Acute Plan to address problem: continue postop pathway advance diet and activity as tolerated Shower dressing to be removed by RN after shower Subjective - Subjective Date of service: 10/20/19 Principal diagnosis: postop day #1 s/p primary c/s Patient reports: appetite normal, voiding normally, pain well controlled, flatus, ambulating normally, no dizzy ambulation, no nauseated Manley: doing well, nursing well Objective - Vital Signs Latest vital signs: Vital Signs Temp Pulse Resp BP Pulse Ox 10/20/19 05:54 98.4 F 81 18 105/64 97 10/20/19 00:27 98.6 F 86 16 115/75 97 10/19/19 20:47 98.1 F 89 20 122/66 96 10/19/19 15:56 98.4 F 83 18 117/71 98 10/19/19 14:54 80 119/65 95 10/19/19 14:20 100.1 F H 95 H 16 118/62 98 10/19/19 14:05 95 H 16 117/63 97 10/19/19 13:50 89 14 114/68 98 10/19/19 13:35 80 13 118/60 98 10/19/19 13:30 80 13 113/60 98 10/19/19 13:25 90 13 114/57 98 10/19/19 13:23 98.8 F 97 H 13 99/63 98 10/19/19 12:05 95 H 100 10/19/19 12:00 100 H 100 10/19/19 11:48 93 H 100 10/19/19 11:47 85 125/73 10/19/19 11:43 89 100 10/19/19 11:38 104 H 99 10/19/19 11:33 98 H 99 10/19/19 11:32 83 119/74 10/19/19 11:28 88 98 10/19/19 11:23 92 H 99 10/19/19 11:18 92 H 97 10/19/19 11:17 83 124/70 10/19/19 11:13 94 H 97 10/19/19 11:08 94 H 97 10/19/19 11:03 89 96 10/19/19 11:01 89 103/57 10/19/19 10:58 88 97 10/19/19 10:53 91 H 96 10/19/19 10:48 92 H 96 10/19/19 10:46 82 101/56 10/19/19 10:43 77 96 10/19/19 10:38 74 96 10/19/19 10:33 79 95 10/19/19 10:32 74 96/52 94 10/19/19 10:28 78 95 10/19/19 10:23 67 96 10/19/19 10:18 74 95 10/19/19 10:16 83 96/54 10/19/19 10:13 76 94 10/19/19 10:08 72 95 10/19/19 10:03 72 95 10/19/19 10:01 74 88/49 10/19/19 09:58 76 95 10/19/19 09:56 69 94 10/19/19 09:53 71 95 10/19/19 09:51 69 94 10/19/19 09:48 69 95 10/19/19 09:47 69 96/52 10/19/19 09:46 74 94 10/19/19 09:43 75 95 10/19/19 09:38 77 95 10/19/19 09:37 78 94 10/19/19 09:33 70 95 10/19/19 09:31 70 97/52 10/19/19 09:28 78 95 10/19/19 09:23 107 H 99 10/19/19 09:18 76 97 10/19/19 09:17 75 107/56 10/19/19 09:13 84 96 10/19/19 09:08 77 97 10/19/19 09:03 79 97 10/19/19 09:01 88 122/64 10/19/19 08:58 79 96 10/19/19 08:53 82 97 10/19/19 08:48 86 98 10/19/19 08:47 82 127/62 10/19/19 08:43 84 97 10/19/19 08:38 99 H 99 10/19/19 08:33 101 H 126/82 97 10/19/19 08:28 126 H 98 10/19/19 08:23 89 96 10/19/19 08:18 72 99 10/19/19 08:16 68 102/52 10/19/19 08:13 67 99 10/19/19 08:08 75 100 10/19/19 08:03 82 99 Intake and Output 10/19/19 10/20/19 10/20/19 23:59 07:59 15:59 Intake Total 50 480 Output Total 0 2000 Balance 50 -1520 Intake: IV 50 ANCEF/NS 1 GM/50 ML 1 gm 50 In 50 ml @ 100 mls/hr IV Q[facility] Rx#:[id number] Intake, Free Water 480 Output: Urine 0 2000 Indwelling Catheter 0 1300 Void 700 Other: Total, Output Amount 0 500 # Voids Indwelling Catheter 700 - Exam Breasts: Present: normal, Cardiovascular: Present: Regular rate Lungs: Present: Clear to auscultation, Normal air movement Abdomen: Present: normal appearance, soft Vulva: both: normal Uterus: Present: normal, firm, fundal height below umbilicus Extremities: Present: normal Deep Tendon Reflex Grade: Normal +2 Incision: Present: normal, dry, dressed
[2019-10-20] MEDS: PRENATAL VIT27-FE FUMARATE-FOLIC ACID VIT TAB PO SCH (09:02)
[2019-10-20] MEDS: FERROUS SULFATE 325 MG TAB PO SCH (09:02)
[2019-10-20] MEDS ORDERED: IBUPROFEN 800 MG TAB PO PRN (13:32)
[2019-10-21] MEDS: HYDROcodone/ACETAMINOPHEN 5-325 MG TAB PO PRN ×2 (05:43→10:20)
--- NOTE | 2019-10-21 07:04 | Discharge Summary ---
Providers - Providers Date of Admission: 10/18/19 19:26 Date of discharge: 10/21/19 (pt anxious to be discharged) Attending physician: SOPHIA PARKINSON 10/19/19 15:31 Consult to Project Management Specialist [CONS] Routine Reason For Exam: Primary care physician: [facility] Hospital[facility] Reason for admission: rupture of membranes Delivery: Procedure: primary low transverse (NRFT) Episiotomy: none Laceration: none Incision: normal, dry, intact Other procedures: none complications: none Discharge diagnosis: IUP at term delivered baby: female Hospital course: uncomplicated section non-reassuring tracing Pt sitting up in bed caring for NB No c/o voiced VSS FF below umb Lochia scant Incision D&I Stable H&H. Doing well s/p c/s P: d/c today with instructions RTO 1 week Postop care. OCPs for BC. Condition at discharge: Good Disposition: DC-01 TO HOME OR SELFCARE - Discharge Diagnoses (1) delivery delivered Status: Acute Comment: RTO 1 week postop care Plan - Discharge Medications Prescriptions: Ferrous Sulfate [Feosol 325 MG tab] 325 mg PO BID #60 tablet Ibuprofen [Motrin 800 MG tab] 800 mg PO Q6H PRN #30 tablet PRN Reason: Pain oxyCODONE /ACETAMINOPHEN [Percocet 5/325 mg] 1 - 2 tab PO Q4H PRN #20 tablet PRN Reason: Pain, Moderate - Provider Discharge Summary Activity: routine, no sex for 6 weeks, no heavy lifting 4 weeks, no strenuous exercise Diet: routine Instructions: routine Additional instructions: [] Smoking cessation referral if applicable(refer to patient education folder for contact #) [] Refer to [facility] Booklet Call your doctor immediately for: * Fever > 100.5 * Heavy vaginal bleeding ( >1 pad per hour) * Severe persistent headache * Shortness of breath * Reddened, hot, painful area to leg or breast * Drainage or odor from incision. * Keep incision clean and dry at all times and follow doctor's instructions regarding bathing/showering - Follow up plan Follow up: PRIMARY CARE, [Primary Care Provider] - 7 Days NATHAN AMOS CNM [Advanced Practice Nurse] - 7 Days (Congratulations! Please call [phone] to schedule your postoperative visit in 1 week. Take medications as prescribed. Motrin/ibuprofen for cramping/pain. Call with concerns.)
[2019-10-21 08:45] VITALS: BP 101/66
[2019-10-21] MEDS: PRENATAL VIT27-FE FUMARATE-FOLIC ACID VIT TAB PO SCH (10:20)
[2019-10-21] MEDS: FERROUS SULFATE 325 MG TAB PO SCH (10:20)
== END 2019-10-21 15:00 | disposition home or self-care (01) | DRG 788 ==
LOC: TRG 16:26 → LD 18:07 → INTOOBSV 18:07 → OBSVTOIN 18:07 → LD 10-19 04:36 → OB 10-19 15:24
PROVIDERS: ADMIT Obstetrics & Gynecology; ATTEND Obstetrics & Gynecology
PROC: 10D00Z1 Extraction of Products of Conception, Low, Open Approach (ICD-10-PCS; principal; 2019-10-19)
DX: O76 Abnormality in fetal heart rate and rhythm complicating labor and delivery (principal); O99.214 Obesity complicating childbirth; E66.9 Obesity, unspecified; Z3A.37 37 weeks gestation of pregnancy; Z37.0 Single live birth
CPT/HCPCS: 36415; 74018; 85014; 85018; 85027; 86592; 86850; 86900; 86901; 88307; G0378; J0690; J1170; J1885; J2270; J2405; J2590; J2765; J3490; J7030; J7120; J7121